=== PATIENT | female | born 1980 | race Hispanic/Latino ===

== ENCOUNTER 2019-12-10 12:48 | Inpatient (IN) | payer BC ==
[2019-12-10 13:20] VITALS: BMI 30.3
[2019-12-10] MEDS ORDERED: ACETAMINOPHEN 500 MG TAB PO PRN (13:38)
[2019-12-10] MEDS ORDERED: ONDANSETRON 4 MG/2 ML VIAL IV PRN (13:38)
[2019-12-10] MEDS ORDERED: LORazepam 2 MG/ML VIAL IV PRN (13:38)
[2019-12-10] MEDS ORDERED: IPRATROPIUM BROM 0.5MG/2.5ML NEB PRN (13:38)
[2019-12-10] MEDS ORDERED: MORPHINE 2 MG/ML SYR IV PRN (13:38)
[2019-12-10] MEDS ORDERED: ACETAMINOPHEN 650MG/RECT SUPP PR PRN (13:38)
[2019-12-10] MEDS ORDERED: ALBUTEROL 2.5 MG/3 ML NEB SOL NEB PRN (13:38)
--- NOTE | 2019-12-10 13:49 | P.HP ---
Certification for Inpatient Patient admitted to: Observation With expected LOS: <2 Midnights Patient will require the following post-hospital care: None Practitioner: I am a practitioner with admitting privileges, knowledge of patient current condition, hospital course, and medical plan of care. Services: Services provided to patient in accordance with Admission requirements found in Title 42 Section 412.3 of the Code of Federal Regulations Patient History Date of Service: 12/10/19 Primary Care Provider: Yefri Barkley NP Reason for admission: Abdominal pain History of Present Illness: 39-year-old female presented [facility] with abdominal pain, nausea and vomiting. Patient was evaluated at [facility]. She reported abdominal pain to the lower abdomen starting yesterday around 1:00 p.m.. There was no radiation of pain. She rated the pain about a 8/10. She took some leftover pain medication to see if this would improved. She had cramping the most of the day. When she got home from work, she had some soup. She vomited 4 times thereafter. She fell asleep. When she woke up this morning she continued to have more abdominal pain with nausea and vomiting. Symptoms did not improved. Patient reported no sick contacts. Only change in her diet included a herbal tea for weight loss called "3 Ballerinas tea". She apparently took the teas 2 days prior. She went to [facility] for further evaluation. She was evaluated there. She was found to have a distal small-bowel obstruction. The patient was transferred to continue care at our facility. Patient was accepted by me. Patient was also accepted by surgery-Dr. Andersen. When I saw the patient she appeared stable. Pain improved. Lab pending at this time. Patient with history of depression, asthma. Patient with prior surgical history of appendectomy and x1. Allergies No Known Allergies Allergy (Verified 12/10/19 13:17) Home medications list reviewed: Yes Home Medications: Albuterol Sulfate [Proair Hfa] 2 puff IH PRN 02/10/14 Hydrocodone 10/APAP 325 [[place] 10/325*] 1 tab PO Q6H PRN #30 tab 02/12/14 Buspirone HCl [Buspar*] 15 mg PO BIDP PRN 12/10/19 Desvenlafaxine Succinate [Pristiq] 100 mg PO DAILY 12/10/19 - Past Medical/Surgical History Has patient received pneumonia vaccine in the past: No Diabetic: No -: Asthma -: Anxiety -: Depression -: Appendectomy -: x1 Psychosocial/ Personal History: Patient is single - Family History Mother -: Hypertension - Social History Smoking Status: Never smoker Alcohol use: Yes CD- Drugs: No Caffeine use: Yes Place of Residence: Home Review of Systems General: As per HPI Eyes: Unremarkable ENT: Unremarkable Respiratory: Unremarkable Cardiovascular: Unremarkable Gastrointestinal: Nausea, Vomiting, Abdominal Pain, As per HPI Genitourinary: Unremarkable Musculoskeletal: Unremarkable Integumentary: Unremarkable Neurological: Unremarkable Lymphatics: Unremarkable Physical Examination - Vital Signs Temperature: 97.2 F Blood Pressure: 113/69 Pulse: 79 Respirations: 18 Pulse Ox (%): 99 - Physical Exam General: Alert, In no apparent distress, Oriented x3, Cooperative HEENT: Atraumatic, Normocephalic, Other (Dry mucous membranes) Neck: Supple, No Thyromegaly Respiratory: Clear to auscultation bilaterally, Normal air movement Cardiovascular: Normal pulses, Regular rate/rhythm Gastrointestinal: Hypoactive, Soft and benign, Non-distended, No masses, No rebound, No guarding, Tenderness (Minimal tenderness to the lower quadrant) Musculoskeletal: No erythema, No tenderness, No warmth Integumentary: No tenderness/swelling, No erythema, No warmth, No cyanosis Neurological: Normal speech, Normal strength at 5/5 x4 extr, Normal tone, Normal affect Assessment and Plan - Plan Impression: Lower abdominal pain with nausea and vomiting secondary to distal small-bowel obstruction Depression with anxiety Asthma Plan: Lower abdominal pain with nausea and vomiting secondary to distal small-bowel obstruction: Patient was transferred from outpatient emergency room to our facility. Case discussed with surgery. Will keep the patient NPO. Will start IV Cipro and Flagyl. Will continue with IV fluid hydration. Will provide DVT prophylaxis-Lovenox. Will obtain CBC, BMP, magnesium, blood culture, and urinalysis for . Will monitor electrolytes. Electrolyte protocol in place. Will encourage ambulation. Will provide incentive spirometer. Will continue to monitor and reassess. Etiology may be related to her recent use of herbal teas. Anticipate improvement over the next 24-48 hr. Once significantly improved will consider starting a clear liquid diet. Will discuss further with surgery. Depression with anxiety: Will provide medication IV. Once clinically stable will Restart her home medications. Asthma: Will provide medication as needed. - Advance Directives Does patient have a Living Will: No Does patient have a Durable POA for Healthcare: No - Code Status/Comfort Care Code Status Assessed: Yes (Patient is full code) Time Spent Managing Pts Care (In Minutes): 55
[2019-12-10] MEDS: NA CHLORIDE 0.9% 1,000 ML IV SCH (14:03)
[2019-12-10] MEDS: CIPROFLOXACIN 400mg IV 400 MG/200 ML BAG IV SCH ×2 (14:03→20:49)
[2019-12-10] MEDS: METRONIDAZOLE 500mg IVPB 500 MG/100 ML BAG IV SCH ×2 (14:07→16:26)
[2019-12-10 14:53] LABS: Absolute Lymphocytes (CBC) 1.1 K/uL (0.7-4.9); Basophils % 0.3 % (0-1.3); Hematocrit 42.4 % (36.0-45.0); Lymphocytes % 14.2 % (15.3-44.8); MPV 8.8 fL (7.6-11.3); RBC Red Blood Cell Count 4.69 M/uL (3.86-4.86)
[2019-12-10 15:11] LABS: BUN Blood Urea Nitrogen 10 mg/dL (7-18); Bicarbonate 25 mmol/L (21-32); Glucose Level 90 mg/dL (74-106); Magnesium 2.2 mg/dL (1.8-2.4); Potassium 3.9 mmol/L (3.5-5.1); Sodium Level 140 mmol/L (136-145)
[2019-12-10 16:22] LABS: Urine Appearance CLEAR; Urine Bilirubin NEGATIVE (NEG); Urine Blood TRACE (NEG); Urine Color YELLOW; Urine Glucose NEGATIVE (NEG); Urine Protein NEGATIVE (NEG); Urine Specific Gravity >=1.030 (1.005-1.030); Urine Urobilinogen 0.2 mg/dL (0.2-1.0)
[2019-12-10 17:38] LABS: Urine Bacteria <20 /HPF (<20); Urine Culture Reflex Order NOT NEEDED; Urine RBC <5 /HPF (NONE SEEN)
--- NOTE | 2019-12-10 19:17 | CON ---
Date of Consultation: 12/10/2019 Reason For Consultation: Small bowel obstruction. History Of Present Illness: Patient is a 39-year-old female, who started 3 Ballerina diet approximat darlene 2 or 3 days ago and had severe abdominal pain yesterday, crampy in nature. Periumbilical associa javi with nausea and vomiting. She did have a bowel movement yesterday and she was passing gas this m orning. No sore throat, runny nose, cough, headaches, or dizziness. No chest pain. No fever or chi lls. She feels better after medications were given. She is currently not with nausea or vomiting. Review of systems otherwise unremarkable. No blood in her stool. No dysuria or hematuria. Review of Systems: Otherwise unremarkable. Past Medical History: Significant for asthma, anxiety, depression. Past Surgical History: Appendectomy, . Allergies: NONE. Social History: Patient does not smoke. Drinks occasionally. Family History: Significant for heart disease. Physical Examination: Vital Signs: Stable. She is currently afebrile. General: She is awake, alert, and oriented x3. Head And Neck: Cranial nerves 2 through 12 are grossly within normal limit. No neck masses. No JVD . Throat clear. Neck supple. Chest: Clear. Heart: S1, S2. Abdomen: Soft, nondistended. Minimal tenderness. No rebound, rigidity, or guarding. Bowel sounds are present. Extremities: Adequately perfused. Nontender. Neuro: Nonfocal. Diagnostic Data: CT of the abdomen and pelvis done out is reviewed, basically shows dilated small ashlyn wel with distal collapse. There is some mesenteric inflammation. No other evidence of disease. Her white count was normal. Electrolytes were reviewed. Assessment: Partial small bowel obstruction, probably secondary to the new diet she started and comp licated with dehydration and gastroenteritis. Recommendations: N.p.o., IV fluids, IV antibiotics, parenteral pain and nausea medication as needed should the patient vomit. She may benefit from an NG tube. We will do serial abdominal exam. Check her abdominal x-ray tomorrow. Make further recommendations as the case develops. We will follow th is patient while in the hospital. /MODL Voice ID: [id number] Report ID: [id number]
[2019-12-10] MEDS: FAMOTIDINE 20 MG/2 ML VIAL IV SCH (20:49)
[2019-12-11] MEDS: NA CHLORIDE 0.9% 1,000 ML IV SCH
[2019-12-11] MEDS: METRONIDAZOLE 500mg IVPB 500 MG/100 ML BAG IV SCH ×2 (00:16→09:47)
[2019-12-11 04:15] LABS: Absolute Lymphocytes (CBC) 1.5 K/uL (0.7-4.9); Basophils % 0.6 % (0-1.3); Hematocrit 37.8 % (36.0-45.0); Lymphocytes % 26.5 % (15.3-44.8); MPV 8.7 fL (7.6-11.3); RBC Red Blood Cell Count 4.24 M/uL (3.86-4.86)
[2019-12-11 04:27] LABS: BUN Blood Urea Nitrogen 8 mg/dL (7-18); Bicarbonate 27 mmol/L (21-32); Glucose Level 90 mg/dL (74-106); Magnesium 2.1 mg/dL (1.8-2.4); Potassium 3.5 mmol/L (3.5-5.1); Sodium Level 141 mmol/L (136-145)
[2019-12-11] MEDS ORDERED: KCL 20 MEQ/100 mL IVPB 20 MEQ/100 ML BAG IV SCH (06:00)
[2019-12-11 08:36] VITALS: O2SAT 97
--- NOTE | 2019-12-11 08:39 | RAD REPORT ---
EXAM DESCRIPTION: RAD - Abdomen W Erect - 12/11/2019 7:49 am CLINICAL HISTORY: SBO Pain COMPARISON: <Comparisons> FINDINGS: A few mildly prominent but nonobstructed small bowel loops are seen in the central abdomen . Moderate stool is present throughout the colon. No free air seen. No suspicious calcifications. No significant bony findings. IUD is present. IMPRESSION: No evidence of SBO at this time.
--- NOTE | 2019-12-11 08:49 | P.PN ---
Subjective Date of Service: 12/11/19 Primary Care Provider: Yefri Barkley NP Chief Complaint: Abdominal pain Subjective: Improving, Other (No passage of stool yet. But passage of gas noted. Improvement noted. No nausea or vomiting.) Physical Examination - Vital Signs Temperature: 97.8 F Blood Pressure: 119/75 Pulse: 82 Respirations: 18 Pulse Ox (%): 97 - Physical Exam General: Alert, In no apparent distress, Oriented x3, Cooperative HEENT: Atraumatic Neck: Supple Respiratory: Clear to auscultation bilaterally, Normal air movement Cardiovascular: Normal pulses, Regular rate/rhythm Gastrointestinal: Normal bowel sounds, Soft and benign, Non-distended, No masses , No rebound, No guarding, Tenderness (Minimal pain to the epigastric region) Musculoskeletal: No erythema, No tenderness, No warmth Integumentary: No tenderness/swelling, No erythema, No warmth, No cyanosis Neurological: Normal speech, Normal strength at 5/5 x4 extr, Normal tone, Normal affect - Studies Laboratory Data (last 24 hrs) 12/11/19 03:50: Sodium 141, Potassium 3.5, BUN 8, Creatinine 0.65, Glucose 90, Magnesium 2.1 12/11/19 03:50: WBC 5.5 D, Hgb 12.6, Hct 37.8, Plt Count 236 12/10/19 14:33: Sodium 140, Potassium 3.9, BUN 10, Creatinine 0.64, Glucose 90, Magnesium 2.2 12/10/19 14:33: WBC 8.0, Hgb 13.9, Hct 42.4, Plt Count 235 Microbiology Data (last 24 hrs): 12/10/19 14:22 Blood - Blood Anaerobic Blood Culture - Final 12/10/19 14:33 Blood - Blood Anaerobic Blood Culture - Final Medications List Reviewed: Yes Assessment & Plan Discharge Plan: Home Plan to discharge in: 24 Hours Physician Review Additional Text: Impression: Lower abdominal pain with nausea and vomiting secondary to partial distal small- bowel obstruction Depression with anxiety Asthma Plan: Lower abdominal pain with nausea and vomiting secondary to partial distal small- bowel obstruction: Patient has improved. X-ray shows no more small-bowel obstruction. Case discussed with surgery. Will advance diet to clear liquid this morning. If tolerates diet then advance diet for lunch time. If she continues to improve anticipate discharge later today with oral Cipro and Flagyl as an outpatient. Encourage ambulation. Will provide incentive spirometer. Will reassess later today to consider possible discharge. Depression with anxiety: Restart home medication. Asthma: Will provide medication as needed. Time Spent Managing Pts Care (In Minutes): 55
[2019-12-11] MEDS ORDERED: ENOXAPARIN 40 MG/0.4 ML SQ SCH (09:00)
[2019-12-11] MEDS: CIPROFLOXACIN 400mg IV 400 MG/200 ML BAG IV SCH (09:47)
[2019-12-11] MEDS: FAMOTIDINE 20 MG/2 ML VIAL IV SCH (09:48)
--- NOTE | 2019-12-11 11:58 | P.DS ---
Admission Date: 12/10/19 Discharge Date: 12/11/19 Primary Care Provider: Yefri Barkley NP Disposition: ROUTINE DISCHARGE Discharge Condition: GOOD Reason for Admission: Abdominal pain Consultations: Surgery-Dr. Andersen Procedures: CT Scan: Follow up xray: FINDINGS: A few mildly prominent but nonobstructed small bowel loops are seen in the central abdomen. Moderate stool is present throughout the colon. No free air seen. No suspicious calcifications. No significant bony findings. IUD is present. IMPRESSION: No evidence of SBO at this time. Medical Problem list: Lower abdominal pain with nausea and vomiting secondary to partial distal small- bowel obstruction, resolved, complicated with gastroenteritis Depression with anxiety Asthma Suspect underlying GERD Brief History of Present Illness: 39-year-old female presented [facility] with abdominal pain, nausea and vomiting. Patient was evaluated at [facility]. She reported abdominal pain to the lower abdomen starting yesterday around 1:00 p.m.. There was no radiation of pain. She rated the pain about a 8/10. She took some leftover pain medication to see if this would improved. She had cramping the most of the day. When she got home from work, she had some soup. She vomited 4 times thereafter. She fell asleep. When she woke up this morning she continued to have more abdominal pain with nausea and vomiting. Symptoms did not improved. Patient reported no sick contacts. Only change in her diet included a herbal tea for weight loss called "3 Ballerinas tea". She apparently took the teas 2 days prior. She went to [facility] for further evaluation. She was evaluated there. She was found to have a distal small-bowel obstruction. The patient was transferred to continue care at our facility. Patient was accepted by me. Patient was also accepted by surgery-Dr. Andersen. When I saw the patient she appeared stable. Pain improved. Lab pending at this time. Patient with history of depression, asthma. Patient with prior surgical history of appendectomy and x1. Hospital Course: Patient presented to [facility] with nausea, vomiting and abdominal pain. Patient was found to have partial distal small-bowel obstruction. Patient had recently started a diet regimen of teas. Patient was transferred to the hospital for continued management. Patient was seen by surgery. Patient was started on IV antibiotic therapy and IV fluids. X-ray showed improvement and resolution of small-bowel obstruction. No surgical intervention required. Patient likely had gastroenteritis related to diet regiment of teas which led to partial small- bowel obstruction. At discharge patient without significant abdominal pain, nausea, and vomiting. She is tolerating her diet. At discharge she will continue with Cipro 500 mg twice daily and Flagyl 500 mg 3 times a day for 7 days. Recommend no further use de of diet regimen of teas. Continue with a full liquid diet then advance to a GI soft over the next week. This can be further advanced to a regular diet once significantly improved. Patient may follow up with surgery as an outpatient to follow up this hospitalization. Patient likely with underlying GERD. Will start Pepcid 20 mg 1 pill twice daily. Patient may benefit with GI evaluation as an outpatient. Patient with underlying depression with anxiety. At discharge she will continue with her medications-Buspar and Pristiq. Patient with history of asthma. Patient may continue with her medication. Vital Signs/Physical Exam: Temp Pulse Resp BP Pulse Ox 97.8 F 82 18 119/75 97 12/11/19 08:49 12/11/19 08:49 12/11/19 08:49 12/11/19 08:49 12/11/19 08:49 General: Alert, In no apparent distress, Oriented x3 HEENT: Atraumatic Neck: Supple Respiratory: Clear to auscultation bilaterally, Normal air movement Cardiovascular: Normal pulses, Regular rate/rhythm Gastrointestinal: Normal bowel sounds, Soft and benign, Non-distended, No tenderness, No masses, No rebound, No guarding Musculoskeletal: No erythema, No tenderness, No warmth Neurological: Normal speech, Normal strength at 5/5 x4 extr, Normal tone Laboratory Data at Discharge: WBC 5.5 K/uL (4.3-10.9) D 12/11/19 03:50 Hgb 12.6 g/dL (12.0-15.0) 12/11/19 03:50 Hct 37.8 % (36.0-45.0) 12/11/19 03:50 Plt Count 236 K/uL (152-406) 12/11/19 03:50 Sodium 141 mmol/L (136-145) 12/11/19 03:50 Potassium 3.5 mmol/L (3.5-5.1) 12/11/19 03:50 BUN 8 mg/dL (7-18) 12/11/19 03:50 Creatinine 0.65 mg/dL (0.55-1.3) 12/11/19 03:50 Glucose 90 mg/dL (74-106) 12/11/19 03:50 Magnesium 2.1 mg/dL (1.8-2.4) 12/11/19 03:50 Home Medications: Albuterol Sulfate [Proair Hfa] 2 puff IH PRN 02/10/14 Buspirone HCl [Buspar*] 15 mg PO BIDP PRN 12/10/19 Desvenlafaxine Succinate [Pristiq] 100 mg PO DAILY 12/10/19 Ciprofloxacin HCl [Cipro 500 MG Tablet] 500 mg PO BID #14 tab 12/11/19 Famotidine [Pepcid] 20 mg PO BID #60 tab 12/11/19 metroNIDAZOLE [Flagyl] 500 mg PO Q8H #21 tablet 12/11/19 New Medications: Ciprofloxacin HCl [Cipro 500 MG Tablet] 500 mg PO BID #14 tab Famotidine [Pepcid] 20 mg PO BID #60 tab metroNIDAZOLE [Flagyl] 500 mg PO Q8H #21 tablet Patient Discharge Instructions: 1. Recommend follow-up with PCP in 1-2 weeks to follow up this hospitalization. 2. Patient presented to [facility] with nausea, vomiting and abdominal pain. Patient was found to have partial distal small-bowel obstruction. Patient had recently started a diet regimen of teas. Patient was transferred to the hospital for continued management. Patient was seen by surgery. Patient given IV antibiotic therapy and IV fluids. X-ray showed improvement and resolution of small-bowel obstruction. No surgical intervention required. Patient likely had gastroenteritis related to diet regiment of teas which led to partial small-bowel obstruction. At discharge patient without significant abdominal pain, nausea, and vomiting. She is tolerating her diet. At discharge she will continue with Cipro 500 mg twice daily and Flagyl 500 mg 3 times a day for 7 days. Recommend no further use de of diet regimen of teas. Continue with a full liquid diet then advance to a GI soft over the next week. This can be further advanced to a regular diet once significantly improved. Patient may follow up with surgery as an outpatient to follow up this hospitalization. 3. Patient likely with underlying GERD. Will start Pepcid 20 mg 1 pill twice daily. Patient may benefit with GI evaluation as an outpatient. 4. Patient with underlying depression with anxiety. At discharge she will continue with her medications-Buspar and Pristiq. 5. Patient with history of asthma. Patient may continue with her medication. Diet: Full liquid diet advanced to soft Activity: Ad franky Time spent managing pt's care (in minutes): 55
[2019-12-11 12:06] VITALS: BP 151/73; TEMP 97.4
[2019-12-11] MEDS ORDERED: ALBUTEROL 2.5 MG/3 ML NEB SOL NEB PRN (15:00)
[2019-12-11] MEDS ORDERED: IPRATROPIUM BROM 0.5MG/2.5ML NEB PRN (15:00)
--- NOTE | 2019-12-11 15:25 | PN ---
Date of Progress Note: 12/11/2019 Subjective: Patient is awake and alert. Passing gas. No BM. Feels better. No pain. Abdominal x- ray reviewed. No evidence of obstruction. There is some mild dilated small bowel. Stool in the col on. Abdomen benign, soft, nondistended, nontender, positive bowel sounds. Assessment: Gastroenteritis, partial small bowel obstruction, improving. Recommendation: Start liquid diet. Advance as tolerated. Cleared for discharge later today if diet tolerated, on oral antibiotics, Cipro and Flagyl for a week. Follow up with PCP. Discharge plan di scussed with Dr. Lucas and the patient. /MODL Voice ID: [id number] Report ID: [id number]
== END 2019-12-11 14:51 | disposition home or self-care (01) | DRG 390 ==
LOC: 4TH 12:48
PROVIDERS: ADMIT Family Medicine; ATTEND Family Medicine
DX: K56.600 Partial intestinal obstruction, unspecified as to cause (principal); K52.9 Noninfective gastroenteritis and colitis, unspecified; K21.9 Gastro-esophageal reflux disease without esophagitis; J45.909 Unspecified asthma, uncomplicated; F41.8 Other specified anxiety disorders; E86.0 Dehydration
CPT/HCPCS: 36415; 74019; 80048; 81001; 83735; 85025; 87040; J0744; J1650; J7030

== ENCOUNTER 2023-10-17 06:29 | Day surgery (SDC) | payer OTHER ==
[2023-10-15 08:54] LABS: Absolute Lymphocytes (CBC) 3.3 K/uL (0.7-4.9); Hematocrit 36.4 % (36.0-45.0); Lymphocytes % 42.4 % (15.3-44.8); MCV 86.2 fL (80-100); MPV 8.3 fL (7.6-11.3); Platelets 183 thou/uL (152-406); RBC Red Blood Cell Count 4.22 M/uL (3.86-4.86)
[2023-10-15 09:20] LABS: Blood Morphology Comment NOT SEEN (NOT SEEN)
--- NOTE | 2023-10-15 09:38 | RAD REPORT ---
EXAM DESCRIPTION: RAD - Chest Pa And Lat (2 Views) - 10/15/2023 8:54 am CLINICAL HISTORY: Pre op pending hemorrhoidectomy. Asthma. hypertension. COMPARISON: No comparisons TECHNIQUE: PA and lateral views of the chest were obtained. FINDINGS: The lungs are clear. Hyperlucency and hyperinflation come suggestive of COPD. Left chest w all pacer in place. Heart size is normal and central vasculature is within normal limits. No pleural effusion or pneumothorax seen. No acute bony finding noted. IMPRESSION: No acute cardiopulmonary process.
--- NOTE | 2023-10-15 12:25 | EKG ---
Test Date: 2023-10-15 Test Time: 09:18:36 Electrical Construction Project Manager: ZANDER MEASUREMENT RESULTS: Intervals: Rate: 77 NM: 152 QRSD: 94 QT: 372 QTc: 420 Walker: P: 60 NM: 152 QRS: 58 T: 72 INTERPRETIVE STATEMENTS: Normal sinus rhythm Incomplete right bundle branch block Borderline ECG No previous ECG available for comparison Electronically Signed On 10-15-23 12:25:21 BATTERY CONTAINER INSPECTOR by Huseyin Vasques
[2023-10-17] MEDS ORDERED: CEFOXITIN SODIUM 1 GM/VIAL ONE (07:06)
[2023-10-17] MEDS ORDERED: LIDOCAINE 2% MPF 5 ML VIAL ONE (07:09)
[2023-10-17] MEDS ORDERED: ONDANSETRON 4 MG/2 ML VIAL ONE (07:09)
[2023-10-17] MEDS ORDERED: FENTANYL CITR 100 MCG/2 ML ONE (07:10)
[2023-10-17] MEDS ORDERED: MIDAZOLAM HCL 2 MG/2 ML INJ ONE (07:10)
[2023-10-17] MEDS ORDERED: BUPIVACAINE 0.5% PF 10 ML VIAL ONE (07:10)
[2023-10-17] MEDS ORDERED: LIDOCAINE HCL/EPINEPHRINE 20 ML MDV ONE (07:10)
[2023-10-17] MEDS ORDERED: propofoL 200 MG/20 ML VIAL IV ONE ×2 (07:10→08:18)
[2023-10-17] MEDS: Ringers Lactate 1,000 ML IV ONE ×2 (07:14→07:29)
[2023-10-17] MEDS ORDERED: dexAMETHasone 4 MG/ML VIAL ONE (07:49)
[2023-10-17 08:30] VITALS: O2SAT 100
--- NOTE | 2023-10-17 08:36 | P.OP ---
Date of Service: 10/17/23 Preop diagnosis: Bleeding hemorrhoids Postop diagnosis: Same Procedure performed: Examine under anesthesia, proctoscopy and complex he morrhoidectomy x 2 Surgeon: Rambo Andersen MD Inspector Exhaust Emissions: None Estimated blood loss: Minimal Specimen: Hemorrhoids x 2 Findings: External and internal hemorrhoids anterior midline and posterior midli ne Anesthesia: General Complications: None Drains: None Fluids and blood products: None applicable Disposition: Recovery room Operative note: Patient brought to the OR and placed in supine position. General anesthesia begun. Patient placed in the lithotomy position and prepped and draped in the usual sterile fashion. Exam under anesthesia revealed external and internal hemorrhoids, prominent in the anterior midline in the posterior midline. Proctoscopy revealed no other evidence of disease besides the hemorrhoids. Harmonic scalpel used to excise the external/internal hemorrhoids in both places. The specimens were labeled appropriately and sent to pathology. Bleeding was controlled with cautery. Anal pack consisting of Gelfoam Surgicel and Vaseline gauze was placed. Prior to the excision of the hemorrhoids, Marcaine 0.5% was infiltrated for postop pain control. Sterile dressing applied. Patient awakened and taken to recovery room in good general condition. CC: Dr. Jones's office
[2023-10-17] MEDS ORDERED: HYDROCODONE/APAP 7.5/325 MG TAB PO PRN (08:41)
[2023-10-17 09:28] VITALS: BP 113/77; TEMP 98.2
[2023-10-17] MEDS ORDERED: HYDROCODONE/APAP 7.5/325 MG TAB ONE (09:44)
[2023-10-17 12:41] LABS: Urine Specific Gravity/Preg 1.025 (1.005-1.030)
== END 2023-10-17 10:10 | disposition home or self-care (01) ==
LOC: OR 06:29
PROVIDERS: ATTEND Surgery
PROC: 0DJD8ZZ Inspection of Lower Intestinal Tract, Via Natural or Artificial Opening Endoscopic (ICD-10-PCS; 2023-10-17)
PROC: 06BY0ZC Excision of Hemorrhoidal Plexus, Open Approach (ICD-10-PCS; principal; 2023-10-17 07:30)
DX: K64.8 Other hemorrhoids (principal); K64.4 Residual hemorrhoidal skin tags
CPT/HCPCS: 93005; 85025; 80048; 36415; 81025; 88304; 71046; 46260; 45300; J2704 ×2; J1100; J2001; J2250; J3010; J0694; J2405; J7120

== ENCOUNTER 2025-02-20 11:25 | Day surgery (SDC) | payer OTHER ==
--- NOTE | 2025-02-20 09:27 | RAD REPORT ---
Procedure: Chest Pa And Lat (2 Views) HISTORY: Preop for gallbladder surgery COMPARISON: 2022 FINDINGS: The lungs appear clear of acute infiltrate. No significant pleural effusion noted. The heart is normal size. Pacemaker leads in place. IMPRESSION: No acute abnormality is displayed.
[2025-02-20 09:31] LABS: ALT/SGPT 21 U/L (13-56); Albumin 3.6 g/dL (3.4-5.0); Albumin/Globulin Ratio 0.9 (1.1-1.8); Alkaline Phosphatase 70 U/L (45-117); Bilirubin Total 0.4 mg/dL (0.2-1.0); Lipase 29 U/L (13-75); Protein, Total 7.6 g/dL (6.4-8.2)
[2025-02-20 09:42] LABS: AST/SGOT < 10 U/L (15-37); Bilirubin Direct < 0.2 mg/dL (0-0.2); Bilirubin Indirect, Calculated 0.2 mg/dL (0.2-0.8)
[2025-02-20] MEDS ORDERED: Ringers Lactate 1,000 ML IV ONE ×2 (11:46→13:25)
[2025-02-20] MEDS ORDERED: dexAMETHasone 10 MG/ML VIAL ONE (12:43)
[2025-02-20] MEDS ORDERED: KETOROLAC 30 MG/ML INJ ONE (12:43)
[2025-02-20] MEDS ORDERED: ONDANSETRON 4 MG/2 ML VIAL ONE (12:43)
[2025-02-20] MEDS ORDERED: ROCURONIUM 50 MG/5 ML VIAL IV ONE (12:43)
[2025-02-20] MEDS ORDERED: LIDOCAINE 2% MPF 5 ML VIAL ONE (12:43)
[2025-02-20] MEDS ORDERED: FENTANYL CITR 100 MCG/2 ML ONE (12:44)
[2025-02-20] MEDS ORDERED: MIDAZOLAM HCL 2 MG/2 ML INJ ONE (12:44)
[2025-02-20] MEDS ORDERED: propofoL 200 MG/20 ML VIAL IV ONE (12:44)
[2025-02-20] MEDS: CEFOXITIN SODIUM 1 GM/VIAL ONE (12:48)
[2025-02-20] MEDS ORDERED: NS 0.9% VIAL 10 ML ONE (13:05)
[2025-02-20] MEDS ORDERED: Mastisol Adhesive Liq ONE (13:32)
[2025-02-20] MEDS ORDERED: GLYCOPYRROLATE 0.2 MG/ML SYR ONE (13:37)
[2025-02-20] MEDS ORDERED: NEOSTIGMINE 1 MG/ML -10 ML VIAL ONE (13:37)
--- NOTE | 2025-02-20 13:40 | P.BOP ---
Preoperative diagnosis: acute cholecystitis, symptomatic cholelithiasis Postoperative diagnosis: same, intrabdominal adhesions, umbilical hernia Primary procedure: 1. Laparoscopic cholecystectomy Secondary procedure: 2. Repair of umbilical hernia Other procedure(s): 3. lysis of adhesions Estimated blood loss: <10c Specimen: sac, GB Findings: as above Anesthesia: General Complications: None Transferred to: Recovery Room Condition: Good
[2025-02-20 14:17] VITALS: O2SAT 98
[2025-02-20] MEDS: CODEINE 30MG/APAP 300MG TAB ONE (14:44)
[2025-02-20 15:44] VITALS: BP 106/66; TEMP 97.8
--- NOTE | 2025-02-20 15:46 | OP ---
Date of Procedure: 02/20/2025 Surgeon: Theo Stoll MD Preoperative Diagnoses: Abdominal pain, acute cholecystitis, symptomatic cholelithiasis. Postoperative Diagnoses: Abdominal pain, acute cholecystitis, symptomatic cholelithiasis plus intraa bdominal adhesions, and umbilical hernia. Procedure Performed: 1. Laparoscopic cholecystectomy. 2. Open repair of umbilical hernia. 3. Lysis of adhesions. Estimated Blood Loss: Less than 10 cc. Specimen: Hernia sac and gallbladder. Findings: Patient has multiple adhesions in the abdomen. Patient has previous intraabdominal surger ies. Those have to be removed with the help of LigaSure. We also noticed patient to have an umbilic al hernia. She has also history of an abdominoplasty and gallbladder pathology. The benefits, alter natives, and risks of laparoscopic, possible open cholecystectomy was fully explained which include, but not limited to infection, bleeding, damage to adjacent structures, anesthesia complication, recur rence, MS, even . She also understands this may not relieve symptoms, she might need more than one surgical intervention. She understood, signed a consent. Description Of Procedure: The patient was brought to the operating room, placed in supine position. Anesthesia was given without complication. The patient was brought to the operating room, placed in supine position. Anesthesia was given without complication. Abdominal area was prepped and draped in a sterile fashion. Local anesthesia was applied followed by sharp incision of the skin in the inf raumbilical region. Patient has a previous abdominoplasty. So, we used the previous incisions in th at area. When we get down to the fascia, we noticed the patient to have a small umbilical hernia. T he hernia sac was removed. Fascial edges were cleaned. We placed Vicryl #1 inside of the fascia. H asson trocar was carefully introduced. Pneumoperitoneum was obtained. After that, we placed 3 more trocars, 5 mm each one of them in the epigastric and upper quadrant area. We noticed multiple omenta l adhesions to the liver itself dropping also the gallbladder, so we have to take time to remove thos e. Otherwise, we cannot do the surgery, so we used LigaSure to do the lysis of adhesions. Once we h ave those over there without no intestinal injury, then we proceeded to put a grasper in the fundus o f the gallbladder, another grasper in infundibulum retracting the gallbladder in the inferolateral fa shion exposing the triangle of Calot, obtaining critical view. The cystic duct and cystic artery wer e clearly isolated and freed circumferentially, and a connection between those and the gallbladder we re clearly identified. I proceeded to ligate those by using at least 3 clips proximal, 1 clip distal , ligation in middle. Same was done with the cystic artery. No bile leak. No bleeding. The gallbl adder was removed from liver using Bovie cauterizer and removed from abdominal cavity using EndoCatch through an umbilical incision. Area was inspected once again including the area of lysis of adhesio ns. At that moment, I proceeded to remove the trocars under direct vision, deflated the pneumoperito neum, closed the fascia and umbilical hernia with #1 Vicryl. Irrigated the subcutaneous tissue, clos ed with 3-0 chromic, and skin in subcuticular fashion with 3-0 chromic and Steri-Strips on top. Spon ge count, instrument counts correct. Patient tolerated the procedure well. Patient was sent to [facility] in stable condition. Condition: Stable. Disposition: Home. Activity: As tolerated. No lifting. Follow up in my office in 1 week. Call for appointment at [phone]. Keep the area dry for 48 hours, then may shower. Keep Steri-Strip intact. For medications, see orders. BÁRBARA/FAITH Voice ID: [id number] Report ID: [id number]
--- NOTE | 2025-02-23 12:19 | EKG ---
Test Date: 2025-02-20 Test Time: 08:58:04 Ordnance Engineer: RIC MEASUREMENT RESULTS: Intervals: Rate: 72 AR: 168 QRSD: 102 QT: 374 QTc: 409 [place]: P: 13 AR: 168 QRS: 23 T: 30 INTERPRETIVE STATEMENTS: Normal sinus rhythm Incomplete right bundle branch block Borderline ECG Compared to ECG 10/15/2023 09:18:36 No significant changes Electronically Signed On 02-23-25 12:10:33 CDT by Clarence Frey
== END 2025-02-20 15:25 | disposition home or self-care (01) ==
LOC: OR 11:25
PROVIDERS: ATTEND Surgery
PROC: 0DNW4ZZ Release Peritoneum, Percutaneous Endoscopic Approach (ICD-10-PCS; 2025-02-20)
PROC: 0FT44ZZ Resection of Gallbladder, Percutaneous Endoscopic Approach (ICD-10-PCS; principal; 2025-02-20 12:30)
DX: K80.10 Calculus of gallbladder with chronic cholecystitis without obstruction (principal); R10.9 Unspecified abdominal pain; K66.0 Peritoneal adhesions (postprocedural) (postinfection)
CPT/HCPCS: 93005; 36415; 84703; 80076; 88302; 88304; 83690; 71046; 47562; 49329; A4216; J2704; J2710; J2003; J2250; J3010; J1100; J0694; J2405; J7120 ×2